=== PATIENT | male | born 1955 | race Caucasian/White ===

== ENCOUNTER 2016-07-24 08:30 | Emergency (ER) | payer MEDICAID ==
[2016-07-24 08:38] VITALS: BP 141/88; PULSE 86; RESP 20; TEMP 97.5; O2SAT 96
--- NOTE | 2016-07-24 09:08 | EDPHY ---
H & P Stated Complaint: Pain to R hip since yesterday while landscaping Time Seen by Provider: 07/24/16 08:32 HPI/ROS: CHIEF COMPLAINT: Right hip and thigh pain HISTORY OF PRESENT ILLNESS: The patient presents to the ED with several days of increasing right hip and thigh pain. The patient denies history of trauma. The patient describes a neuropathic pain in the area of his right gluteal area and right thigh. 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 He has had some issues with increasing tightness in his thigh over the past several months. The patient denies any bowel or bladder dysfunction. He has no complaints of muscular weakness. He denies any saddle anesthesia. The patient has tried taking some [id number] medications with minimal improvement of his symptoms. Patient denies fever, IV drug use or additional significant medical problems. REVIEW OF SYSTEMS: A comprehensive 10 point review of systems is otherwise negative aside from elements mentioned in the history of present illness. Source: Patient Exam Limitations: No limitations - Personal History Current Tetanus/Diphtheria Vaccine: Yes - Medical/Surgical History Hx Asthma: No Hx Chronic Respiratory Disease: No Hx Diabetes: No Hx Cardiac Disease: No Hx Renal Disease: No Hx Cirrhosis: No Hx Alcoholism: No Hx HIV/AIDS: No Hx Splenectomy or Spleen Trauma: No Other PMH: R shoulder surg - Social History Smoking Status: Never smoked - Physical Exam Exam: General Appearance: Alert, no distress Eyes: Pupils equal and round no pallor or injection ENT, Mouth: Mucous membranes moist Respiratory: There are no retractions, lungs are clear to auscultation Cardiovascular: Regular rate and rhythm Gastrointestinal: Abdomen is soft and nontender, no masses, bowel sounds normal LOWER EXTREMITY NEURO EXAM L1,2 Hip flexion 5/5 bilaterally L3,4 Knee extension 5/5 bilaterally L4 Dorsiflexion 5/5 bilaterally L5 Great toe extension 5/5 bilaterally S1,2 Plantar Flexion 5/5 bilaterally Neurological: Sensation intact to light touch, DTR 2+ bilaterally, no clonus Skin: Warm and dry, no rashes Musculoskeletal: No tenderness to palpation appreciated in the lumbar spine, tenderness to deep palpation in the right gluteal area, normal range of motion noted in the right hip without exacerbation of his symptoms Extremities: symmetrical, full range of motion Psychiatric: Patient is oriented X 3, there is no agitation Constitutional: Initial Vital Signs Temperature (C) 36.4 C 07/24/16 08:35 Heart Rate 86 05/08/17 08:35 Respiratory Rate 20 07/24/16 08:35 Blood Pressure 141/88 H 07/24/16 08:35 O2 Sat (%) 96 07/24/16 08:35 O2 Delivery Mode Room Air Allergies/Adverse Reactions: No Known Allergies Allergy (Verified 12/05/14 12:30) Home Medications: Medication Instructions Recorded Adderall 10 MG (RX) 10/21/14 Citalopram 10/21/14 Simvastatin 10/21/14 Wellbutrin Sr 10/21/14 Tamsulosin HCl 12/05/14 methylPREDNISolone [Medrol Dose 1 each PO AD #1 ea 07/24/16 Naeem] oxyCODONE IR [Oxycodone Ir (*)] 5 - 10 mg PO Q6 PRN #20 tab 07/24/16 Medical Decision Making ED Course/Re-evaluation: The patient presents to the ED with right leg radicular symptoms which I feel are most consistent with a possible mild disc herniation. The patient has no weakness or numbness no on exam. He has no clinical evidence of a cauda equina type syndrome. The patient has been informed to the following plan for treatment. We will try a course of systemic oral steroids. The patient understands to return to the ED immediately for numbness, weakness or bowel or bladder dysfunction. The patient will follow up with his primary care provider and is also referred to a process laboratory specialist for any unimproved symptoms. Departure - Departure Disposition: Home, Routine, Self-Care Clinical Impression: Sciatica Condition: Good Instructions: Lumbar Radiculopathy (ED) Additional Instructions: 1. Take Ibuprofen or Motrin 600 mg by mouth three times a day. 2. Take oral steroids as directed 3. Tylenol 650 mg every 6 hours as needed for pain. 4. Please take oxycodone as needed for severe pain. 5. Please follow-up with your primary care provider and the back specialist you have been referred to. Referrals: Pop Lundberg MD [Medical Doctor] - As per Instructions
== END 2016-07-24 09:22 | disposition home or self-care (01) ==
LOC: CED 08:30
DX: M54.31 Sciatica, right side (principal)